=== PATIENT | female | born 1960 | race Caucasian/White ===

== ENCOUNTER 2018-07-03 12:33 | Emergency (ER) | payer OTHER ==
--- OUTSIDE RECORDS SUMMARY | 2018-07-03 12:35 | XMS REPORT | Summary of Care ---
:1960 Author Name ANDRES NULL M.D. Address Unavailable Unavailable , Care Team Providers Name Role Phone ANDRES NULL M.D. Unavailable Unavailable Unavailable Unavailable Unavailable Functional Status Name Dates Details Functional status health issues are not documented Status: Name Dates Details Cognitive status health issues are not documented Status: Problems Name Dates Details Palpitations (785.1, R00.2) Status: Active Constipation (564.00, K59.00) Status: Active CTS (carpal tunnel syndrome) (354.0, G56.00) Status: Active Bilateral carpal tunnel syndrome (354.0, G56.03) Status: Active Hypothyroidism (244.9, E03.9) Status: Active Medications Name Dates Details Levothyroxine Sodium 75 MCG Oral Tablet TAKE 1 TABLET DAILY Quantity: 90 Refills: 3 Flaquita NULL M.D. Vitamin D 1000 UNIT Oral Tablet TAKE 1 TABLET DAILY. Refills: 0 Start : 26-Dec-2016 Active Allergies and Adverse Reactions Name Dates Details No Known Drug Allergies (Allergy) Status: Active Past Medical History Name Dates Details History of Goran thyroiditis (V12.29, Z86.39) Status: Resolved Procedures Procedure Dates Details [[facility]] T4, FREE Date: 06-Jul-2017 [[facility]] TSH, 3RD GENERATION Date: 06-Jul-2017 [[facility]] LIPID PANEL Date: 06-Jul-2017 History of Prior Surgical Procedure Not Done Completed Immunization Name Dates Details Influenza on: 30-May-2017 Family History Name Dates Details Family history of hypothyroidism (V18.19, Z83.49) Status: Active Family history of macular degeneration (V19.19, Z83.518) Status: Active Name Dates Details Family history of alcoholism (V17.0, Z81.1) Status: Active Family history of congestive heart failure (V17.49, Z82.49) Status: Active Social History Name Dates Details - Status: Name Dates Details Never smoker Vital Signs Date Test Result Details [id number] BP Systolic 120 mm[Hg] Status: Comments: Location: RUE; Position: Sitting BP Diastolic 72 mm[Hg] Status: Comments: Location: E; Position: Sitting Weight 154.4 lb Status: Body Mass Index Calculated 24.92 kg/m2 Status: Body Surface Area Calculated 1.79 m2 Status: Temperature 98.1 f Status: Comments: Method: Oral Heart Rate 67 /min Status: Respiration Rate 18 /min Status: Results Date Description Value Details Results not documented Plan of Care Name Dates Details Planned Observations Planned Goals not documented Planned Encounters Appointment; ANDRES NULL M.D. On: 05-Jul-2018 9:30 Interventions Provided Labs/Procedures/Imaging[[facility]] LIPID PANEL; To Be Done: 06 Jul 2017[[facility]] T4, FREE ; To Be Done: 06 Jul 2017[[facility]] TSH, 3RD GENERATION; To Be Done: 06 Jul 2017Discussion/SummaryPreviously Normal ekg. Follow up with cardiology for more palpitations symptoms for holter monitor.Continue current dose of thyroid.Normal tft's, igf-1 related to CTS, use wrist splints, nsaids and surgery if no improvement.Follow up annually and prn. Instructions Name Dates Details Instructions not documented Encounters Appointment; ANDRES NULL M.D. On: 20-Dec-2015 9:00 Encounter Diagnosis: Problem not documented Appointment; ANDRES NULL M.D. On: 20-Jun-2016 9:30 Encounter Diagnosis: Problem not documented Appointment; ANDRES NULL M.D. On: 26-Dec-2016 9:30 Encounter Diagnosis: Problem not documented Appointment; ANDRES NULL M.D. On: 29-Jun-2017 10:00 Encounter Diagnosis: Problem not documented Appointment; ANDRES NULL M.D. On: 06-Jul-2017 9:30 Encounter Diagnosis: Problem not documented
--- NOTE | 2018-07-03 14:07 | RAD REPORT ---
EXAM DESCRIPTION: RAD - Forearm Left - 07/03/2018 2:01 pm CLINICAL HISTORY: Slip and fall, arm pain COMPARISON: None. FINDINGS: Distal radius fracture is present. There is a transverse fracture of the metaphysis. There additional fracture planes present extending to the articular surface near the radial styloid. There is minimal impaction along the dorsal margin in a very minimal 5-10 degree dorsal angulation. No pat hologic component. Ulna styloid is fractured. No carpal bone dislocation or acute finding. No foreign body or other soft tissue abnormality. IMPRESSION: Comminuted distal radius fracture with minimal dorsal impaction and minimal dorsal angul ation.
[2018-07-03] MEDS ORDERED: HYDROCODONE/APAP 7.5/325 MG TAB ONE (14:11)
--- NOTE | 2018-07-03 14:14 | EDPHYS ---
Physician Documentation [facility] Name: Angela Evans Age: 58 yrs Sex: Female : 1960 Arrival Date: 07/03/2018 Time: 12:35 Bed 11 Private MD: None, None ED Physician Israel Mendez HPI: 07/03 13:14 This 58 yrs old Female presents to ER via Ambulatory with complaints of Fall kb Injury - WRIST. 13:14 Details of fall: The patient fell from an upright position, getting out of shower and kb slipped on wet surface. Onset: The symptoms/episode began/occurred just prior to arrival. Associated injuries: The patient sustained left wrist, decreased range of motion, painful injury, swelling. Severity of symptoms: At their worst the symptoms were moderate, in the emergency department the symptoms are unchanged. The patient has not experienced similar symptoms in the past. The patient has not recently seen a physician. Historical: - Allergies: 12:49 No Known Allergies; aj1 - Home Meds: 12:49 levothyroxine oral [Active]; aj1 - PMHx: 12:49 Hypothyroidism; aj1 - Immunization history:: Flu vaccine is up to date. - Social history:: Smoking status: Patient/guardian denies using tobacco. - Ebola Screening: : Patient denies travel to an Ebola-affected area in the 21 days before illness onset. ROS: 13:13 Constitutional: Negative for fever, chills, and weight loss, Cardiovascular: Negative kb for chest pain, palpitations, and edema, Respiratory: Negative for shortness of breath, cough, wheezing, and pleuritic chest pain, Abdomen/GI: Negative for abdominal pain, nausea, vomiting, diarrhea, and constipation, Back: Negative for injury and pain, : Negative for injury, bleeding, discharge, and swelling, Skin: Negative for injury, rash, and discoloration, Neuro: Negative for headache, weakness, numbness, tingling, and seizure. 13:13 MS/extremity: Positive for injury or acute deformity, pain, swelling, tenderness, of the left wrist. Exam: 13:13 Constitutional: This is a well developed, well nourished patient who is awake, alert, kb and in no acute distress. Head/Face: Normocephalic, atraumatic. Chest/axilla: Normal chest wall appearance and motion. Nontender with no deformity. No lesions are appreciated. Cardiovascular: Regular rate and rhythm with a normal S1 and S2. No gallops, murmurs, or rubs. Normal PMI, no JVD. No pulse deficits. Respiratory: Lungs have equal breath sounds bilaterally, clear to auscultation and percussion. No rales, rhonchi or wheezes noted. No increased work of breathing, no retractions or nasal flaring. Abdomen/GI: Soft, non-tender, with normal bowel sounds. No distension or tympany. No guarding or rebound. No evidence of tenderness throughout. Skin: Warm, dry with normal turgor. Normal color with no rashes, no lesions, and no evidence of cellulitis. Neuro: Awake and alert, GCS 15, oriented to person, place, time, and situation. Cranial nerves II-XII grossly intact. Motor strength 5/5 in all extremities. Sensory grossly intact. Cerebellar exam normal. Normal gait. 13:13 Musculoskeletal/extremity: Extremities: grossly normal except: noted in the left wrist: decreased ROM, pain, swelling, tenderness, ROM: limited active range of motion, limited active range of motion due to pain, Circulation is intact in all extremities. Sensation intact. Vital Signs: 12:49 BP 109 / 77; Pulse 63; Resp 16; Temp 97.3; Pulse Ox 100% on R/A; Weight 69.85 kg (R); aj1 Height 5 ft. 6 in. (167.64 cm) (R); Pain 5/10; 12:49 Body Mass Index 24.86 (69.85 kg, 167.64 cm) aj1 MDM: 12:52 Patient medically screened. kb 13:14 Data reviewed: vital signs, nurses notes. Data interpreted: Pulse oximetry: on room air kb is 100 %. Interpretation: normal. 14:11 Counseling: I had a detailed discussion with the patient and/or guardian regarding: the kb historical points, exam findings, and any diagnostic results supporting the discharge/admit diagnosis, radiology results, the need for outpatient follow up, a orthopedic surgeon, to return to the emergency department if symptoms worsen or persist or if there are any questions or concerns that arise at home. 07/03 13:00 Order name: Forearm Left XRAY; Complete Time: 14:11 kb 07/03 14:12 Order name: Sugar Tong Forearm Splint; Complete Time: 14:51 kb 07/03 14:12 Order name: Misc. Order: Finger trap; Complete Time: 14:51 kb 07/03 14:12 Order name: Sling; Complete Time: 14:51 kb Administered Medications: 14:08 Drug: Newport (7.5 mg-325 mg) 1 tabs Route: PO; ss 14:51 Follow up: Response: No adverse reaction; Pain is decreased ss Disposition: 16:53 Co-signature as Attending Physician, Israel Mendez MD. rn Disposition: 07/03/18 14:13 Discharged to Home. Impression: Unspecified fracture of left forearm - radius. - Condition is Stable. - Discharge Instructions: Forearm Fracture, [id number]. - Prescriptions for Tylenol- Codeine #3 300-30 mg Oral Tablet - take 1 tablet by ORAL route every 6 hours As needed; 15 tablet. - Medication Reconciliation Form, Thank You Letter, Antibiotic Education, Prescription Opioid Use form. - Follow up: Emergency Department; When: As needed; Reason: Worsening of condition. Follow up: Private Physician; When: 2 - 3 days; Reason: Recheck today's complaints, Continuance of care, Re-evaluation by your physician. Signatures: Dispatcher [employer] EDFina Miranda, SEARCH STRATEGIST-C SEARCH STRATEGIST-Ckb Jeannine Rebolledo RN RN aj1 Israel Mendez MD MD rn Smirch, Shelby, RN RN Corrections: (The following items were deleted from the chart) 15:01 14:13 07/03/2018 14:13 Discharged to Home. Impression: Unspecified fracture of left ss forearm - radius. Condition is Stable. Forms are Medication Reconciliation Form, Thank You Letter, Antibiotic Education, Prescription Opioid Use. Follow up: Emergency Department; When: As needed; Reason: Worsening of condition. Follow up: Private Physician; When: 2 - 3 days; Reason: Recheck today's complaints, Continuance of care, Re-evaluation by your physician. kb
--- NOTE | 2018-07-03 14:14 | ER ---
Nurse's Notes [facility] Name: Angela Evans Age: 58 yrs Sex: Female : 1960 Arrival Date: 07/03/2018 Time: 12:35 Bed 11 Private MD: None, None Diagnosis: Unspecified fracture of left forearm-radius Presentation: 07/03 12:47 Presenting complaint: Patient states: She slipped in the shower and landed on her left aj1 wrist, now it is swollen and painful to move. Limited ROM noted to left wrist. Transition of care: patient was not received from another setting of care. Onset of symptoms was July 03, 2018. Risk Assessment: Do you want to hurt yourself or someone else? Patient reports no desire to harm self or others. Initial Sepsis Screen: Does the patient meet any 2 criteria? No. Patient's initial sepsis screen is negative. Does the patient have a suspected source of infection? No. Patient's initial sepsis screen is negative. Care prior to arrival: None. 12:47 Method Of Arrival: Ambulatory aj 12:47 Acuity: LYDIA 4 aj1 Triage Assessment: 12:49 General: Appears in no apparent distress. comfortable, Behavior is calm, cooperative, aj1 appropriate for age. Pain: Complains of pain in left wrist Pain currently is 5 out of 10 on a pain scale. Neuro: Level of Consciousness is awake, alert, obeys commands. Cardiovascular: Patient's skin is warm and dry. Respiratory: Airway is patent Respiratory effort is even, unlabored, Respiratory pattern is regular, symmetrical. Musculoskeletal: Range of motion: limited in left wrist Swelling present in left wrist. Historical: - Allergies: 12:49 No Known Allergies; aj1 - Home Meds: 12:49 levothyroxine oral [Active]; aj1 - PMHx: 12:49 Hypothyroidism; aj1 - Immunization history:: Flu vaccine is up to date. - Social history:: Smoking status: Patient/guardian denies using tobacco. - Ebola Screening: : Patient denies travel to an Ebola-affected area in the 21 days before illness onset. Screenin:15 Abuse screen: Denies threats or abuse. Denies injuries from another. Nutritional ss screening: No deficits noted. Tuberculosis screening: Never had TB. Fall Risk None identified. Assessment: 14:15 General: Appears in no apparent distress. comfortable, Behavior is calm, cooperative. ss Pain: Complains of pain in left wrist Pain currently is 5 out of 10 on a pain scale. Quality of pain is described as tender, Is continuous. Neuro: Level of Consciousness is awake, alert, obeys commands, Oriented to person, place, time, situation. Cardiovascular: Pulses are palpable in right radial artery and left radial artery. Respiratory: Airway is patent Respiratory effort is even, unlabored, Respiratory pattern is regular, symmetrical, Breath sounds are clear bilaterally. GI: Patient currently denies abdominal pain, nausea, vomiting. EENT: Nares are clear Oral mucosa is moist. Derm: Skin is pink, warm \T\ dry. normal. Musculoskeletal: Range of motion: limited in left wrist Swelling present in left wrist. 14:30 Reassessment: Patient's L forearm placed in finger trap splint for approx 10 minutes. ss No time limit and/or manipulation ordered by provider. Pt tolerated well. 14:50 Reassessment: sugar tong splint placed to L forearm and splint. Pt tolerated well. ss Reassessment: Patient states symptoms have improved. Vital Signs: 12:49 BP 109 / 77; Pulse 63; Resp 16; Temp 97.3; Pulse Ox 100% on R/A; Weight 69.85 kg (R); aj1 Height 5 ft. 6 in. (167.64 cm) (R); Pain 5/10; 12:49 Body Mass Index 24.86 (69.85 kg, 167.64 cm) aj1 ED Course: 12:35 Patient arrived in ED. sb2 12:35 None, None is Private Physician. sb2 12:49 Triage completed. aj1 12:49 Arm band placed on Patient placed in an exam room. aj1 12:51 Fina Simon FNP-C is PHCP. kb 12:51 Israel Mendez MD is Attending Physician. kb 13:59 X-ray completed. Portable x-ray completed in exam room. Patient tolerated procedure ml well. 14:01 Forearm Left XRAY In Process Unspecified. EDMS 14:07 Gabby Nichole, ROSA is Primary Nurse. ss 14:15 Patient has correct armband on for positive identification. Bed in low position. Call ss light in reach. 15:00 No provider procedures requiring assistance completed. Patient did not have IV access ss during this emergency room visit. Orthoglass splint: Sugar tong splint applied on left arm. Sling applied to left arm. Administered Medications: 14:08 Drug: Stafford (7.5 mg-325 mg) 1 tabs Route: PO; ss 14:51 Follow up: Response: No adverse reaction; Pain is decreased ss Outcome: 14:13 Discharge ordered by . kb 15:01 Discharged to home ambulatory, with family. ss 15:01 Condition: good 15:01 Discharge instructions given to patient, family, Instructed on discharge instructions, follow up and referral plans. medication usage, Demonstrated understanding of instructions, follow-up care, medications, Prescriptions given X 1. 15:01 Patient left the ED. ss Signatures: Dispatcher [employer] EDMS Fina Simon, PORT CAPTAIN-C PORT CAPTAIN-CkJeannine Crump, RN RN Kimberly Haider Shelby, RN RN Ilene Barnes2
== END 2018-07-03 15:01 | disposition home or self-care (01) ==
LOC: ER 12:33
PROC: 2W3DX1Z Immobilization of Left Lower Arm using Splint (ICD-10-PCS; principal; 2018-07-03)
DX: S52.502A Unspecified fracture of the lower end of left radius, initial encounter for closed fracture (principal); W18.2XXA Fall in (into) shower or empty bathtub, initial encounter; Y93.9 Activity, unspecified; Y92.002 Bathroom of unspecified non-institutional (private) residence as the place of occurrence of the external cause; E03.9 Hypothyroidism, unspecified
CPT/HCPCS: 99284

== ENCOUNTER 2018-07-05 09:58 | Day surgery (SDC) | payer OTHER ==
[2018-07-04 16:53] LABS: Absolute Lymphocytes (CBC) 1.1 K/uL (0.7-4.9); Absolute Monocytes 0.6 K/uL (0.1-1.3); Absolute Neutrophil 4.3 K/uL (1.8-8.0); Eosinophils % 0.7 % (0-4.4); Hematocrit 38.8 % (36.0-45.0); Lymphocytes % 18.4 % (15.3-44.8); MCH 30.6 pg (27.0-35.0); MCV 90.4 fL (80-100); MPV 9.7 fL (7.6-11.3); Monocytes % 9.7 % (3.3-12.3); RBC Red Blood Cell Count 4.29 M/uL (3.86-4.86)
[2018-07-04 17:01] LABS: Potassium 3.8 mmol/L (3.5-5.1)
[2018-07-05] MEDS ORDERED: CEFAZOLIN/SWI 1gm 1 GM/10 ML SYR ONE (10:10)
[2018-07-05] MEDS ORDERED: Ringers Lactate 1,000 ML IV ONE (10:10)
[2018-07-05] MEDS ORDERED: MIDAZOLAM HCL 2 MG/2 ML INJ ONE (10:51)
[2018-07-05] MEDS ORDERED: PROPOFOL 200 MG/20 ML VIAL IV ONE (10:51)
[2018-07-05] MEDS ORDERED: FENTANYL CITR 100 MCG/2 ML ONE ×2 (10:51→12:44)
[2018-07-05] MEDS ORDERED: LIDOCAINE 2% MPF 5 ML VIAL ONE (10:52)
[2018-07-05] MEDS ORDERED: KETOROLAC 30 MG/ML INJ ONE (12:44)
[2018-07-05] MEDS ORDERED: METOCLOPRAMIDE 10 MG/2mL INJ ONE (12:44)
[2018-07-05] MEDS ORDERED: ONDANSETRON HCL 40 MG/20 ML VIAL ONE (12:44)
--- NOTE | 2018-07-05 13:31 | P.BOP ---
Preoperative diagnosis: left distal radius intraarticular fracture Postoperative diagnosis: same Primary procedure: left dstal radius ORIF Estimated blood loss: 10 ccs Anesthesia: General Complications: None Transferred to: Recovery Room Condition: Good
[2018-07-05] MEDS: MEPERIDINE HCL 50 MG/ML AMP ONE ×2 (13:38→14:00)
[2018-07-05] MEDS ORDERED: MEPERIDINE HCL 50 MG/ML AMP ONE (13:41)
[2018-07-05] MEDS ORDERED: ONDANSETRON 4 MG/2 ML VIAL ONE (14:03)
--- NOTE | 2018-07-05 14:52 | RAD REPORT ---
EXAM DESCRIPTION: RAD - Wrist Left 2 View - 07/05/2018 1:25 pm CLINICAL HISTORY: Radial fracture. FINDINGS: Two fluoroscopic spot images are submitted. They demonstrate internal fixation of a radial fracture by plate and screws in good alignment. The examination was performed by Dr. Saucedo in the operating room. Fluoroscopy time 4.29 minutes. Two fluoroscopic spot images submitted.
[2018-07-05] MEDS ORDERED: HYDROCODONE/APAP 5/325 MG TAB ONE (15:08)
--- NOTE | 2018-07-06 01:03 | OP ---
Date of Procedure: 07/05/2018 Surgeon: Gonzales Saucedo MD Preoperative Diagnosis: Left distal radius intra-articular fracture with 2 intra-articular fragments and displacement. Postoperative Diagnosis: Left distal radius intra-articular fracture with 2 intra-articular fragment s and displacement. Procedure: Left distal radius open reduction and internal fixation using the Acumed 2 distal radius plating system. Estimated Blood Loss: 10 cc. Complications: No known complications. Specimens: No pathology specimen sent. Indication For Operation: The patient is a 58-year-old female who unfortunately injured her left dis cinthia radius. She came to see me in my office. She is neurovascularly intact to her hand and denies a ny pain in the elbow. X-rays were reviewed, which reveal a displaced intra-articular distal radius f racture with comminution. It is anticipated that this will most likely shift and worsen with time an d risks, benefits, and alternatives to open reduction and internal fixation were discussed. She stat es she understands things as presented and wished to proceed. Description Of Procedure: The patient was taken to the operating room and placed in supine position. General anesthesia was obtained by the staff. Following this, well-padded tourniquet was placed on superior left arm. The left upper extremity was then prepped and draped in usual sterile fashion fo r procedure. The arm was then elevated, but not exsanguinated. Tourniquet was raised. A standard v olar approach of Mateo was then taken down carefully through skin only with the zigzag being taken ac ross the volar wrist crease. The flexor carpi radialis was easily encountered and exposed. It was t hen retracted radialward to protect the radial artery. The underlying sheath was then exploited. Th e muscle belly of the flexor pollicis longus was identified and then shifted gently ulnarward to prot ect the median nerve. This followed by visualization of the pronator quadratus. Pronator quadratus did have some soft tissue injury and some tearing. An incision was made in the pronator quadratus an d it was then freed off the volar surface of the radius. Combination of standard reduction technique s as well as instrumented reduction were then used to re-establish the correct position of the distal radius. Following this, C-arm was used to place an Acumed 2 distal radius plate in standard fashion . Care was taken to avoid penetration of the dorsal cortex with the pegs, and the screw leaks of the shaft were checked under biplanar C-arm radiography. Following this, the wound was irrigated and th e tourniquet was dropped. The skin was then closed using interrupted nylon sutures. She was placed in a very well-padded sterile dressing as well as a sugar-tong splint. She was awakened and taken to recovery room in good condition. There were no complications. /CELINA Voice ID: [id number] Report ID: [id number]
== END 2018-07-05 17:00 | disposition home or self-care (01) ==
LOC: OR 09:58
PROVIDERS: ATTEND Orthopaedic Surgery
PROC: 0PSJ04Z Reposition Left Radius with Internal Fixation Device, Open Approach (ICD-10-PCS; principal; 2018-07-05 11:00)
DX: S52.572A Other intraarticular fracture of lower end of left radius, initial encounter for closed fracture (principal); E06.3 Autoimmune thyroiditis
CPT/HCPCS: 36415; 80048; 85025; J0690; J2175; J2250; J2405; J2704; J2765; J3010

== ENCOUNTER 2023-05-15 06:40 | Day surgery (SDC) | payer BC, OTHER ==
--- NOTE | 2023-05-10 16:05 | RAD REPORT ---
EXAM DESCRIPTION: RAD - Chest Pa And Lat (2 Views) - 05/10/2023 3:59 pm CLINICAL HISTORY: pre op for surgery Chest pain. TECHNIQUE: PA and lateral views of the chest were obtained. FINDINGS: The lungs are hyperexpanded compatible with COPD. The heart is upper limit of normal in si ze. No fracture or aggressive bony process. IMPRESSION: COPD without acute process identified. The USPSTF recommends annual screening for lung cancer with low-dose CT (LDCT) in adults aged 50 to 80 years who have a 20 pack-year smoking history and currently smoke or have quit within the past 15 years.
[2023-05-10 16:08] LABS: Hematocrit 40.4 % (36.0-45.0); Lymphocytes % 21.6 % (15.3-44.8); MCV 89.9 fL (80-100); MPV 9.5 fL (7.6-11.3); Platelets 166 thou/uL (152-406)
--- NOTE | 2023-05-11 16:34 | EKG ---
Test Date: 2023-05-10 Test Time: 15:45:43 Medical Communication Specialist: AMAN MEASUREMENT RESULTS: Intervals: Rate: 86 IL: 124 QRSD: 82 QT: 374 QTc: 447 [place]: P: 69 IL: 124 QRS: 48 T: 57 INTERPRETIVE STATEMENTS: Normal sinus rhythm Normal ECG No previous ECG available for comparison Electronically Signed On 05-11-23 16:31:55 CDT by Ezra Alcala
[2023-05-15] MEDS ORDERED: LIDOCAINE 2% MPF 5 ML VIAL ONE (07:12)
[2023-05-15] MEDS ORDERED: propofoL 200 MG/20 ML VIAL IV ONE (07:12)
[2023-05-15] MEDS ORDERED: FENTANYL CITR 100 MCG/2 ML ONE (07:12)
[2023-05-15] MEDS ORDERED: CEFAZOLIN SODIUM 1 GM/VIAL ONE ×2 (07:13→07:56)
[2023-05-15] MEDS ORDERED: Ringers Lactate 1,000 ML IV ONE (07:13)
[2023-05-15] MEDS ORDERED: dexAMETHasone 4 MG/ML VIAL ONE (07:14)
[2023-05-15] MEDS ORDERED: ONDANSETRON 4 MG/2 ML VIAL ONE ×2 (07:14→09:11)
[2023-05-15] MEDS ORDERED: EPHEDRINE SULF 50 MG/ML VIAL ONE (07:54)
[2023-05-15] MEDS ORDERED: HYDROCODONE/APAP 7.5/325 MG TAB PO PRN (08:26)
[2023-05-15] MEDS ORDERED: Mastisol Adhesive Liq ONE (08:28)
--- NOTE | 2023-05-15 08:30 | P.OP ---
Date of Service: 05/15/23 Preop diagnosis: Left posterior arm mass Postop diagnosis: Same Procedure performed: Excision left posterior arm mass 10 x 10 cm with layered closure Surgeon: Jah Hickey MD Print Journalist: Ashley MURPHY Estimated blood loss: Minimal Specimen: Left posterior arm mass Findings: Likely lipoma Anesthesia: General Complications: None Drains: Quarter-inch Chandler drain Fluids and blood products: Nonapplicable Disposition: Recovery room Operative note: Patient brought to the OR placed in the supine position. General anesthesia begun. Patient placed in the right lateral position. Patient prepped and draped in the usual sterile fashion. 15 blade used to make a 8 cm incision over the mass. Subcutaneous tissue divided. Bleeding controlled cautery. 10 x 10 cm fatty mass identified and excised. Bleeding controlled cautery after wound irrigated. Quarter inch Te drain placed and secured with 3-0 nylon. 3-0 chromic used to reapproximate subcutaneous tissue. 3-0 chromic also used to close skin. Sterile dressing applied. Patient awakened and taken to recovery room in good general condition. CC: Dr. Ruiz's office
[2023-05-15 09:34] VITALS: BP 130/72; TEMP 96.8; O2SAT 98
== END 2023-05-15 09:57 | disposition home or self-care (01) ==
LOC: OR 06:40
PROVIDERS: ATTEND Surgery
PROC: 0JBF0ZZ Excision of Left Upper Arm Subcutaneous Tissue and Fascia, Open Approach (ICD-10-PCS; principal; 2023-05-15 07:30)
DX: D48.5 Neoplasm of uncertain behavior of skin (principal); D17.22 Benign lipomatous neoplasm of skin and subcutaneous tissue of left arm; E03.9 Hypothyroidism, unspecified; M06.9 Rheumatoid arthritis, unspecified; R42 Dizziness and giddiness; G43.909 Migraine, unspecified, not intractable, without status migrainosus
CPT/HCPCS: 93005; 85025; 80048; 36415; 88304; 71046; 11406; J2704; J1100; J2001; J3010; J2405 ×2; J7120; J0690 ×2